=== PATIENT | female | born 1960 | race African-American/Black ===

== ENCOUNTER 2017-02-05 16:48 | Inpatient (IN) ==
[2017-02-05] MEDS ORDERED: HYDROmorphone 2 MG/1 ML VIAL ONE (17:31)
[2017-02-05] MEDS ORDERED: ONDANSETRON 4 MG/2 ML VIAL ONE (17:31)
[2017-02-05] MEDS ORDERED: HYDROmorphone 2 MG/1 ML VIAL IV STA (17:36)
[2017-02-05] MEDS ORDERED: ONDANSETRON 4 MG/2 ML VIAL IV STA (17:36)
[2017-02-05] MEDS ORDERED: LEVOFLOXACIN INJ 750 MG in PREMIX 1 EACH IV STA (17:49)
[2017-02-05] MEDS ORDERED: PIPERACILLIN/TAZOBACTAM 3,375 MG in SODIUM CHLORIDE 0.9% 100 ML IV STA (17:49)
[2017-02-05] MEDS ORDERED: LEVOFLOXACIN INJ 150 ML IV ONE (18:09)
[2017-02-05] MEDS ORDERED: SODIUM CHLORIDE 0.9% 100 ML IV ONE (19:02)
[2017-02-05] MEDS ORDERED: PIPERACILLIN/TAZOBACTAM 3,375 MG VIAL IV ONE (19:02)
[2017-02-05 19:09] LABS: Basophils % 0.1 % (0.0-0.8); Hematocrit 46.1 VOL% (35.7-47.0); Hemoglobin 15.7 GM/DL (12.0-16.0); Immature Granulocytes % 0.4 %; Immature Granulocytes Absolute 0.06 #; Lymphocytes # 0.8 10*3/uL (1.4-4.0); Lymphocytes % 4.9 % (21.3-54.2); Mean Corpuscular HGB Conc 34.1 GM/DL (32-36); Mean Corpuscular Hemoglobin 31 PG (27-34); Mean Corpuscular Volume 89.5 FL (87-102); Mean Platelet Volume 11.3 FL (9.6-12.0); Monocytes # 0.4 10*3/uL (0.11-0.8); Monocytes % 2.2 % (1.7-12.7); Neutrophils # 15.4 10*3/uL (1.4-7.4); Neutrophils % 92.4 % (38.7-73.9); Platelet Count 349 T/CUMM (130-400); Red Blood Count 5.15 MC/CUMM (3.8-5.5); Red Cell Distribution Width 12.1 % (9.3-17.3); White Blood Count 16.6 T/CUMM (4-12)
[2017-02-05 19:43] LABS: Lactic Acid 1.7 MMOL/L (0.4-2.0)
[2017-02-05 19:45] LABS: Alanine Aminotransferase 30 U/L (13-56); Albumin 4.5 G/DL (3.4-5.0); Alkaline Phosphatase 118 U/L (45-117); Amylase 31 U/L (25-115); Aspartate Amino Transferase 26 U/L (0-37); Bilirubin,Total < 0.39 MG/DL (0.2-1.0); Blood Urea Nitrogen 14 MG/DL (7-18); Calcium 10.8 MG/DL (8.5-10.1); Glucose 151 MG/DL (74-106); Magnesium 2.3 MG/DL (1.8-2.4); Osmolality,Calculated 267.5 MOS/KG (273-304); Potassium 5.2 MMOL/L (3.5-5.1); Sodium 132 MMOL/L (136-145); Total Protein 10.4 G/DL (6.4-8.3); Troponin I Only < 0.015 NG/ML (0.00-0.045)
[2017-02-05] MEDS ORDERED: GLUCAGON 1 MG VIAL IM PRN (20:41)
[2017-02-05 20:52] LABS: Apearance,Urine Slightly Hazy (Clear); Bilirubin,Urine Negative (Negative); Blood, Urine Negative (Negative); Glucose,Urine (UA) Negative (Negative); Hyaline Casts,Urine 1 /LPF (0-3); Ketones,Urine Negative (Negative); Mucus,Urine Occasional /LPF (Occasional); Nitrite,Urine Negative (Negative); Protein,Urine Negative; RBC,Urine 7 /HPF (0-4); Squamous Epithelial Cell,Urine Occasional /HPF (0-10); Urine Color Yellow (Yellow); Urine Specific Gravity > 1.060 (1.001-1.035); Urine Urobilinogen < 2.0 EU/DL (0.2-1.0); WBC,Urine 4 /HPF (0-6)
[2017-02-05] MEDS: HYDROmorphone 2 MG/1 ML VIAL IV PRN (20:59)
[2017-02-05] MEDS: SODIUM CHLORIDE 0.9% 1,000 ML IV SCH (20:59)
[2017-02-05 21:56] LABS: Lymphocytes 4 % (20-55); Segmented Neutrophils 94 % (50-85); Total Cells Counted 100
[2017-02-05 21:57] LABS: Platelet Estimate Normal
[2017-02-06] MEDS: HYDROmorphone 2 MG/1 ML VIAL IV PRN (01:05)
[2017-02-06] MEDS: INSULIN REGULAR 100 UNIT/ML SUBCUT SCH ×4 (01:08→18:33)
[2017-02-06 09:56] LABS: Albumin 3.5 G/DL (3.4-5.0); Bilirubin,Total 0.7 MG/DL (0.2-1.0); Magnesium 2.4 MG/DL (1.8-2.4); Osmolality,Calculated 275.8 MOS/KG (273-304); Potassium 5.4 MMOL/L (3.5-5.1)
[2017-02-06 10:00] LABS: Basophils % 0.1 % (0.0-0.8); Hematocrit 40.3 VOL% (35.7-47.0); Hemoglobin 13.6 GM/DL (12.0-16.0); Immature Granulocytes % 0.9 %; Immature Granulocytes Absolute 0.14 #; Lymphocytes # 1.2 10*3/uL (1.4-4.0); Lymphocytes % 7.9 % (21.3-54.2); Mean Corpuscular HGB Conc 33.7 GM/DL (32-36); Mean Corpuscular Hemoglobin 30 PG (27-34); Mean Corpuscular Volume 89.4 FL (87-102); Mean Platelet Volume 10.7 FL (9.6-12.0); Monocytes # 0.9 10*3/uL (0.11-0.8); Monocytes % 5.8 % (1.7-12.7); Neutrophils # 12.7 10*3/uL (1.4-7.4); Neutrophils % 85.3 % (38.7-73.9); Platelet Count 389 T/CUMM (130-400); Red Blood Count 4.51 MC/CUMM (3.8-5.5); Red Cell Distribution Width 12.4 % (9.3-17.3); White Blood Count 14.9 T/CUMM (4-12)
[2017-02-06] MEDS: SODIUM CHLORIDE 0.9% 1,000 ML IV SCH ×2 (13:19→13:20)
[2017-02-06] MEDS: PIPERACILLIN/TAZOBACTAM 3,375 MG in SODIUM CHLORIDE 0.9% 100 ML IV SCH ×3 (13:22→20:32)
[2017-02-06] MEDS: carBAMazepine 200 MG TABLET PO SCH (15:46)
[2017-02-07] MEDS: ONDANSETRON 4 MG/2 ML VIAL IV PRN (00:31)
[2017-02-07] MEDS: HYDROmorphone 2 MG/1 ML VIAL IV PRN ×3 (00:31→23:40)
[2017-02-07] MEDS: INSULIN REGULAR 100 UNIT/ML SUBCUT SCH ×4 (00:34→23:27)
[2017-02-07] MEDS: SODIUM CHLORIDE 0.9% 1,000 ML IV SCH ×4 (02:35→23:28)
[2017-02-07] MEDS: PIPERACILLIN/TAZOBACTAM 3,375 MG in SODIUM CHLORIDE 0.9% 100 ML IV SCH ×2 (04:43→13:40)
[2017-02-07 07:57] LABS: Basophils % 0.1 % (0.0-0.8); Hematocrit 31.6 VOL% (35.7-47.0); Immature Granulocytes % 0.3 %; Immature Granulocytes Absolute 0.02 #; Lymphocytes % 27.9 % (21.3-54.2); Mean Corpuscular HGB Conc 32.9 GM/DL (32-36); Mean Corpuscular Hemoglobin 30 PG (27-34); Mean Corpuscular Volume 91.6 FL (87-102); Mean Platelet Volume 10.8 FL (9.6-12.0); Monocytes # 0.7 10*3/uL (0.11-0.8); Monocytes % 9.8 % (1.7-12.7); Neutrophils # 4.5 10*3/uL (1.4-7.4); Neutrophils % 61.9 % (38.7-73.9); Red Cell Distribution Width 12.4 % (9.3-17.3)
[2017-02-07 08:27] LABS: Hemoglobin 10.4 GM/DL (12.0-16.0); Red Blood Count 3.45 MC/CUMM (3.8-5.5); White Blood Count 7.3 T/CUMM (4-12)
[2017-02-07 08:28] LABS: Platelet Count 230 T/CUMM (130-400)
[2017-02-07 08:33] LABS: Calcium 8.8 MG/DL (8.5-10.1); Osmolality,Calculated 277.5 MOS/KG (273-304); Potassium 3.8 MMOL/L (3.5-5.1)
[2017-02-07] MEDS: carBAMazepine 200 MG TABLET PO SCH ×2 (09:13→21:00)
[2017-02-07] MEDS ORDERED: BISACODYL 5 MG TABLET PO ONE (11:00)
[2017-02-07] MEDS ORDERED: POLYETHYLENE GLYCOL POWDER 255 GM BOTTLE PO ONE (11:00)
[2017-02-07] MEDS ORDERED: MAGNESIUM CITRATE 300 ML BOTTLE PO ONE (23:00)
[2017-02-08] MEDS: PIPERACILLIN/TAZOBACTAM 3,375 MG in SODIUM CHLORIDE 0.9% 100 ML IV SCH ×2 (01:00→09:56)
[2017-02-08] MEDS: ONDANSETRON 4 MG/2 ML VIAL IV PRN ×3 (03:38→22:15)
[2017-02-08] MEDS: HYDROmorphone 2 MG/1 ML VIAL IV PRN ×4 (03:38→22:18)
[2017-02-08] MEDS ORDERED: MAGNESIUM CITRATE 300 ML BOTTLE PO ONE (06:18)
[2017-02-08] MEDS: INSULIN REGULAR 100 UNIT/ML SUBCUT SCH ×4 (06:31→18:05)
[2017-02-08 06:56] LABS: Basophils % 0.1 % (0.0-0.8); Hematocrit 32.3 VOL% (35.7-47.0); Hemoglobin 10.7 GM/DL (12.0-16.0); Immature Granulocytes % 0.3 %; Immature Granulocytes Absolute 0.02 #; Lymphocytes # 1.2 10*3/uL (1.4-4.0); Mean Corpuscular HGB Conc 33.1 GM/DL (32-36); Mean Corpuscular Hemoglobin 30 PG (27-34); Mean Corpuscular Volume 89.5 FL (87-102); Mean Platelet Volume 10.9 FL (9.6-12.0); Monocytes # 0.6 10*3/uL (0.11-0.8); Monocytes % 8.1 % (1.7-12.7); Neutrophils # 5.1 10*3/uL (1.4-7.4); Neutrophils % 73.5 % (38.7-73.9); Platelet Count 236 T/CUMM (130-400); Red Blood Count 3.61 MC/CUMM (3.8-5.5); Red Cell Distribution Width 12.1 % (9.3-17.3); White Blood Count 6.9 T/CUMM (4-12)
[2017-02-08 07:37] LABS: Calcium 8.7 MG/DL (8.5-10.1); Osmolality,Calculated 270.8 MOS/KG (273-304); Potassium 3.4 MMOL/L (3.5-5.1)
[2017-02-08] MEDS ORDERED: PROPOFOL 200 MG/20 ML VIAL IV ONE (09:26)
[2017-02-08] MEDS ORDERED: LIDOCAINE 100 MG/5 ML SYRINGE ONE (09:26)
[2017-02-08] MEDS: carBAMazepine 200 MG TABLET PO SCH ×2 (09:55→20:21)
[2017-02-08] MEDS: LISINOPRIL 10 MG TABLET PO SCH (09:56)
[2017-02-08] MEDS ORDERED: ALBUTEROL/IPRATROPIUM 3 ML NEB RESP TX STA (13:17)
[2017-02-08] MEDS: SODIUM CHLORIDE 0.9% 1,000 ML IV SCH ×2 (17:22→22:24)
[2017-02-08] MEDS ORDERED: POLYETHYLENE GLYCOL POWDER 255 GM BOTTLE PO ONE (18:00)
[2017-02-09] MEDS: INSULIN REGULAR 100 UNIT/ML SUBCUT SCH ×5 (00:32→23:41)
[2017-02-09] MEDS: HYDROmorphone 2 MG/1 ML VIAL IV PRN ×2 (02:12→20:43)
[2017-02-09] MEDS: ONDANSETRON 4 MG/2 ML VIAL IV PRN ×2 (02:13→06:14)
[2017-02-09] MEDS ORDERED: MAGNESIUM CITRATE 300 ML BOTTLE PO ONE (06:00)
[2017-02-09] MEDS: SODIUM CHLORIDE 0.9% 1,000 ML IV SCH ×2 (11:31→14:45)
[2017-02-09] MEDS: carBAMazepine 200 MG TABLET PO SCH (11:37)
[2017-02-09] MEDS: LISINOPRIL 10 MG TABLET PO SCH (11:37)
[2017-02-09] MEDS ORDERED: MIDAZOLAM 2 MG/2 ML VIAL ONE ×2 (12:38→13:39)
[2017-02-09] MEDS ORDERED: ONDANSETRON 4 MG/2 ML VIAL ONE ×2 (12:39→13:00)
[2017-02-09] MEDS ORDERED: PHENYLEPHRINE 1 MG/10 ML SYRINGE IV ONE (13:00)
[2017-02-09] MEDS ORDERED: SUCCINYLCHOLINE 200 MG/10 ML VIAL ONE (13:00)
[2017-02-09] MEDS ORDERED: PROPOFOL 200 MG/20 ML VIAL IV ONE (13:00)
[2017-02-09] MEDS ORDERED: ESMOLOL 100 MG/10 ML VIAL IV ONE (13:00)
[2017-02-09] MEDS ORDERED: LIDOCAINE 2% 5 ML VIAL ONE (13:00)
[2017-02-09] MEDS ORDERED: ROCURONIUM 100 MG/10 ML VIAL IV ONE (13:00)
[2017-02-09] MEDS ORDERED: fentaNYL 100 MCG/2 ML VIAL ONE (13:24)
[2017-02-09] MEDS ORDERED: PROPOFOL 1,000 MG/100 ML BOTTLE IV ONE (14:21)
[2017-02-09] MEDS ORDERED: PIPERACILLIN/TAZOBACTAM 3,375 MG in SODIUM CHLORIDE 0.9% 100 ML IV SCH (14:30)
[2017-02-09 14:38] LABS: ABG Base Excess 5.4 MMOL/L (-2.5-2.5); ABG HCO3 29.2 MMOL/L (20-26); ABG PCO2 44.1 MM HG (35-48); ABG PH 7.443 (7.35-7.45); ABG PO2 77.9 MM HG (80-95); ABG TCO2 26.9 MMOL/L (23-27); Allen Test Positive; Pt O2 Delivery Device Ventilator
[2017-02-09] MEDS ORDERED: MAGNESIUM SULF RIDER 2 GM in PREMIX 1 EACH IV PRN (14:38)
[2017-02-09] MEDS ORDERED: MAGNESIUM SULF RIDER 4 GM in PREMIX 1 EACH IV PRN (14:38)
[2017-02-09 14:44] LABS: Amorphous Crystals,Urine Occasional /HPF (Few); Apearance,Urine CLOUDY (Clear); Bacteria,Urine Occasional /HPF (Few); Bilirubin,Urine Negative (Negative); Blood, Urine Negative (Negative); Glucose,Urine (UA) Negative (Negative); Granular Casts,Urine 3 /LPF (0-1); Hyaline Casts,Urine 15 /LPF (0-3); Ketones,Urine Negative (Negative); Mucus,Urine Occasional /LPF (Occasional); Nitrite,Urine Negative (Negative); Protein,Urine 100 MG/DL; RBC,Urine 2 /HPF (0-4); Urine Color Amber (Yellow); Urine Specific Gravity 1.012 (1.001-1.035); Urine Urobilinogen < 2.0 EU/DL (0.2-1.0); WBC,Urine 2 /HPF (0-6)
[2017-02-09] MEDS: PROPOFOL 1,000 MG/100 ML BOTTLE IV SCH ×3 (14:45→22:09)
[2017-02-09 14:47] LABS: Basophils % 0.1 % (0.0-0.8); Hematocrit 32.3 VOL% (35.7-47.0); Hemoglobin 10.9 GM/DL (12.0-16.0); Immature Granulocytes % 0.3 %; Immature Granulocytes Absolute 0.02 #; Lymphocytes # 1.4 10*3/uL (1.4-4.0); Lymphocytes % 19.9 % (21.3-54.2); Mean Corpuscular HGB Conc 33.7 GM/DL (32-36); Mean Corpuscular Hemoglobin 31 PG (27-34); Mean Corpuscular Volume 91.8 FL (87-102); Mean Platelet Volume 10.2 FL (9.6-12.0); Monocytes # 0.6 10*3/uL (0.11-0.8); Monocytes % 7.7 % (1.7-12.7); Neutrophils # 5.2 10*3/uL (1.4-7.4); Platelet Count 259 T/CUMM (130-400); Red Blood Count 3.52 MC/CUMM (3.8-5.5); Red Cell Distribution Width 12.3 % (9.3-17.3); White Blood Count 7.2 T/CUMM (4-12)
[2017-02-09 15:13] LABS: Magnesium 2.4 MG/DL (1.8-2.4); Osmolality,Calculated 283.8 MOS/KG (273-304)
[2017-02-09] MEDS ORDERED: PHENYLEPHRINE DRIP 40 MG/250 ML PREMIX IV ONE (15:14)
[2017-02-09] MEDS: PHENYLEPHRINE DRIP 40 MG/250 ML PREMIX IV SCH (15:18)
[2017-02-09] MEDS ORDERED: CLINDAMYCIN INJ 300 MG in PREMIX 1 EACH IV SCH (16:00)
[2017-02-09] MEDS: PANTOPRAZOLE 40 MG VIAL IV SCH (16:02)
[2017-02-09] MEDS: metroNIDAZOLE INJ 500 MG in PREMIX 1 EACH IV SCH ×2 (16:03→23:04)
[2017-02-09] MEDS: methylPREDNISolone SOD SUC 40 MG/1 ML VIAL IV SCH (16:49)
[2017-02-09] MEDS: POTASSIUM CHLORIDE RIDER 20 MEQ in PREMIX 1 EACH IV PRN ×3 (17:27→22:58)
[2017-02-09] MEDS: PIPERACILLIN/TAZOBACTAM 3,375 MG in SODIUM CHLORIDE 0.9% 100 ML IV SCH (17:27)
[2017-02-09 17:37] LABS: INR 1.1; PT Patient Result 11.7 SECS; Partial Thromboplastin Time 27.1 SECS (0-40)
[2017-02-09] MEDS: POTASSIUM CHLORIDE RIDER 10 MEQ in PREMIX 1 EACH IV PRN (19:39)
[2017-02-10] MEDS: SODIUM CHLORIDE 0.9% 1,000 ML IV SCH ×3 (00:04→18:52)
[2017-02-10] MEDS: methylPREDNISolone SOD SUC 40 MG/1 ML VIAL IV SCH ×3 (00:18→17:00)
[2017-02-10] MEDS: PIPERACILLIN/TAZOBACTAM 3,375 MG in SODIUM CHLORIDE 0.9% 100 ML IV SCH ×3 (00:20→17:00)
[2017-02-10] MEDS: POTASSIUM CHLORIDE RIDER 10 MEQ in PREMIX 1 EACH IV PRN (01:06)
[2017-02-10] MEDS: PROPOFOL 1,000 MG/100 ML BOTTLE IV SCH ×2 (02:11→16:42)
[2017-02-10] MEDS: HYDROmorphone 2 MG/1 ML VIAL IV PRN ×3 (02:15→20:20)
[2017-02-10 03:13] LABS: ABG Base Excess 4.4 MMOL/L (-2.5-2.5); ABG HCO3 25.9 MMOL/L (20-26); ABG Oxygen Saturation 99.3 % (95-100); ABG PH 7.569 (7.35-7.45); ABG PO2 370.4 MM HG (80-95); ABG TCO2 26.8 MMOL/L (23-27); Allen Test Positive; Pt O2 Delivery Device Ventilator
[2017-02-10 03:29] LABS: Basophils % 0.2 % (0.0-0.8); Hematocrit 29.9 VOL% (35.7-47.0); Hemoglobin 10.3 GM/DL (12.0-16.0); Immature Granulocytes % 0.3 %; Immature Granulocytes Absolute 0.04 #; Lymphocytes # 1.5 10*3/uL (1.4-4.0); Lymphocytes % 12.3 % (21.3-54.2); Mean Corpuscular HGB Conc 34.4 GM/DL (32-36); Mean Corpuscular Hemoglobin 31 PG (27-34); Mean Corpuscular Volume 89.5 FL (87-102); Mean Platelet Volume 10.3 FL (9.6-12.0); Monocytes # 0.6 10*3/uL (0.11-0.8); Monocytes % 4.7 % (1.7-12.7); Neutrophils # 10.2 10*3/uL (1.4-7.4); Neutrophils % 82.5 % (38.7-73.9); Platelet Count 291 T/CUMM (130-400); Red Blood Count 3.34 MC/CUMM (3.8-5.5); Red Cell Distribution Width 12.4 % (9.3-17.3); White Blood Count 12.4 T/CUMM (4-12)
[2017-02-10 03:44] LABS: Calcium 8.5 MG/DL (8.5-10.1); Potassium 3.8 MMOL/L (3.5-5.1)
[2017-02-10] MEDS: INSULIN REGULAR 100 UNIT/ML SUBCUT SCH ×3 (05:20→18:59)
[2017-02-10] MEDS: PHENYLEPHRINE DRIP 40 MG/250 ML PREMIX IV SCH ×2 (06:13→16:24)
[2017-02-10] MEDS: metroNIDAZOLE INJ 500 MG in PREMIX 1 EACH IV SCH ×3 (06:20→23:20)
[2017-02-10 08:58] LABS: Troponin I Only 0.021 NG/ML (0.00-0.045)
[2017-02-10] MEDS: PANTOPRAZOLE 40 MG VIAL IV SCH (10:00)
[2017-02-10] MEDS: LISINOPRIL 10 MG TABLET PO SCH (10:20)
[2017-02-10] MEDS: levETIRAcetam INJ 500 MG in SODIUM CHLORIDE 0.9% 50 ML IV SCH (20:25)
[2017-02-11] MEDS: methylPREDNISolone SOD SUC 40 MG/1 ML VIAL IV SCH ×3 (00:27→15:48)
[2017-02-11] MEDS: INSULIN REGULAR 100 UNIT/ML SUBCUT SCH ×5 (00:28→23:49)
[2017-02-11] MEDS: PIPERACILLIN/TAZOBACTAM 3,375 MG in SODIUM CHLORIDE 0.9% 100 ML IV SCH ×3 (00:28→18:41)
[2017-02-11] MEDS: HYDROmorphone 2 MG/1 ML VIAL IV PRN ×3 (02:09→20:37)
[2017-02-11] MEDS: PROPOFOL 1,000 MG/100 ML BOTTLE IV SCH ×2 (02:44→04:34)
[2017-02-11 03:47] LABS: ABG Base Excess -2.9 MMOL/L (-2.5-2.5); ABG Oxygen Saturation 99.8 % (95-100); ABG PCO2 33.5 MM HG (35-48); ABG PH 7.409 (7.35-7.45); ABG TCO2 19.4 MMOL/L (23-27); Allen Test Positive; Pt O2 Delivery Device Ventilator
[2017-02-11] MEDS: SODIUM CHLORIDE 0.9% 1,000 ML IV SCH (04:25)
[2017-02-11 04:48] LABS: Basophils % 0.2 % (0.0-0.8); Hematocrit 26.8 VOL% (35.7-47.0); Hemoglobin 8.8 GM/DL (12.0-16.0); Immature Granulocytes % 0.5 %; Immature Granulocytes Absolute 0.03 #; Lymphocytes # 1.1 10*3/uL (1.4-4.0); Lymphocytes % 17.9 % (21.3-54.2); Mean Corpuscular HGB Conc 32.8 GM/DL (32-36); Mean Corpuscular Hemoglobin 30 PG (27-34); Mean Corpuscular Volume 92.1 FL (87-102); Mean Platelet Volume 10.3 FL (9.6-12.0); Monocytes # 0.3 10*3/uL (0.11-0.8); Monocytes % 5.5 % (1.7-12.7); Neutrophils # 4.4 10*3/uL (1.4-7.4); Neutrophils % 75.9 % (38.7-73.9); Platelet Count 206 T/CUMM (130-400); Red Blood Count 2.91 MC/CUMM (3.8-5.5); Red Cell Distribution Width 12.5 % (9.3-17.3); White Blood Count 5.9 T/CUMM (4-12)
[2017-02-11 04:59] LABS: INR 1.1; PT Patient Result 11.1 SECS; Partial Thromboplastin Time 28.2 SECS (0-40)
[2017-02-11 05:15] LABS: Osmolality,Calculated 291.3 MOS/KG (273-304); Potassium 3.6 MMOL/L (3.5-5.1)
[2017-02-11] MEDS: POTASSIUM CHLORIDE RIDER 20 MEQ in PREMIX 1 EACH IV PRN (06:33)
[2017-02-11] MEDS: metroNIDAZOLE INJ 500 MG in PREMIX 1 EACH IV SCH ×3 (06:35→23:12)
[2017-02-11] MEDS: levETIRAcetam INJ 500 MG in SODIUM CHLORIDE 0.9% 50 ML IV SCH ×2 (09:00→20:38)
[2017-02-11 09:26] LABS: ABG HCO3 21.2 MMOL/L (20-26); ABG Oxygen Saturation 96.4 % (95-100); ABG PCO2 39.3 MM HG (35-48); ABG TCO2 22.4 MMOL/L (23-27); Allen Test Positive; Pt O2 Delivery Device Ventilator
[2017-02-11] MEDS ORDERED: ALBUTEROL/IPRATROPIUM 3 ML NEB RESP TX PRN (09:36)
[2017-02-11] MEDS: PANTOPRAZOLE 40 MG VIAL IV SCH (09:45)
[2017-02-11] MEDS: SODIUM CHLOR 0.45% KCL 20 MEQ 20 MEQ/1,000 ML BAG IV SCH ×2 (09:47→18:42)
[2017-02-11] MEDS: ALBUTEROL/IPRATROPIUM 3 ML NEB RESP TX SCH ×3 (11:21→19:23)
[2017-02-11 11:24] LABS: ABG Base Excess -4.7 MMOL/L (-2.5-2.5); ABG HCO3 20.3 MMOL/L (20-26); ABG Oxygen Saturation 88.6 % (95-100); ABG PH 7.341 (7.35-7.45); ABG PO2 60.7 MM HG (80-95); ABG TCO2 18.8 MMOL/L (23-27); Allen Test Positive; Pt O2 Delivery Device Room Air
[2017-02-11] MEDS: LISINOPRIL 10 MG TABLET PO SCH (13:52)
[2017-02-12] MEDS: methylPREDNISolone SOD SUC 40 MG/1 ML VIAL IV SCH ×3 (00:30→21:58)
[2017-02-12] MEDS: PIPERACILLIN/TAZOBACTAM 3,375 MG in SODIUM CHLORIDE 0.9% 100 ML IV SCH ×3 (00:30→17:21)
[2017-02-12 02:42] LABS: ABG Base Excess -5.2 MMOL/L (-2.5-2.5); ABG Oxygen Saturation 93.9 % (95-100); ABG PCO2 35.3 MM HG (35-48); ABG PH 7.354 (7.35-7.45); ABG PO2 72.2 MM HG (80-95); ABG TCO2 18.2 MMOL/L (23-27); Allen Test Positive; Pt O2 Delivery Device Room Air
[2017-02-12] MEDS: HYDROmorphone 2 MG/1 ML VIAL IV PRN ×4 (03:00→22:07)
[2017-02-12] MEDS: SODIUM CHLOR 0.45% KCL 20 MEQ 20 MEQ/1,000 ML BAG IV SCH ×3 (03:16→13:19)
[2017-02-12 04:46] LABS: Basophils % 0.1 % (0.0-0.8); Hematocrit 28.6 VOL% (35.7-47.0); Hemoglobin 9.3 GM/DL (12.0-16.0); Immature Granulocytes % 0.4 %; Immature Granulocytes Absolute 0.03 #; Lymphocytes % 14.2 % (21.3-54.2); Mean Corpuscular HGB Conc 32.5 GM/DL (32-36); Mean Corpuscular Hemoglobin 30 PG (27-34); Mean Corpuscular Volume 93.5 FL (87-102); Mean Platelet Volume 10.2 FL (9.6-12.0); Monocytes # 0.3 10*3/uL (0.11-0.8); Monocytes % 4.3 % (1.7-12.7); Neutrophils # 5.8 10*3/uL (1.4-7.4); Platelet Count 232 T/CUMM (130-400); Red Blood Count 3.06 MC/CUMM (3.8-5.5); Red Cell Distribution Width 12.7 % (9.3-17.3); White Blood Count 7.1 T/CUMM (4-12)
[2017-02-12 04:52] LABS: Calcium 8.5 MG/DL (8.5-10.1); Magnesium 2.3 MG/DL (1.8-2.4); Osmolality,Calculated 287.6 MOS/KG (273-304); Potassium 4.4 MMOL/L (3.5-5.1)
[2017-02-12] MEDS: INSULIN REGULAR 100 UNIT/ML SUBCUT SCH ×3 (06:22→17:13)
[2017-02-12] MEDS: metroNIDAZOLE INJ 500 MG in PREMIX 1 EACH IV SCH (06:22)
[2017-02-12] MEDS: ALBUTEROL/IPRATROPIUM 3 ML NEB RESP TX SCH ×4 (07:53→19:41)
[2017-02-12] MEDS: PANTOPRAZOLE 40 MG VIAL IV SCH (09:05)
[2017-02-12] MEDS: levETIRAcetam INJ 500 MG in SODIUM CHLORIDE 0.9% 50 ML IV SCH ×2 (09:06→21:54)
[2017-02-12] MEDS: LISINOPRIL 10 MG TABLET PO SCH (10:26)
[2017-02-12] MEDS ORDERED: cefOXitin 2,000 MG in SYRINGE 1 EACH IV ONE (12:32)
[2017-02-12] MEDS: DEXTROSE 50% 25 GM/50 ML VIAL IV PRN ×2 (12:45→17:18)
[2017-02-13] MEDS: PIPERACILLIN/TAZOBACTAM 3,375 MG in SODIUM CHLORIDE 0.9% 100 ML IV SCH ×4 (00:44→23:55)
[2017-02-13] MEDS: SODIUM CHLOR 0.45% KCL 20 MEQ 20 MEQ/1,000 ML BAG IV SCH ×4 (00:54→14:15)
[2017-02-13] MEDS: INSULIN REGULAR 100 UNIT/ML SUBCUT SCH ×5 (00:54→23:55)
[2017-02-13] MEDS: HYDROmorphone 2 MG/1 ML VIAL IV PRN ×3 (01:57→21:51)
[2017-02-13 04:00] LABS: ABG Base Excess -3.9 MMOL/L (-2.5-2.5); ABG HCO3 20.7 MMOL/L (20-26); ABG Oxygen Saturation 93.2 % (95-100); ABG PCO2 35.8 MM HG (35-48); ABG PO2 67.4 MM HG (80-95); ABG TCO2 21.8 MMOL/L (23-27); Allen Test Positive; Pt O2 Delivery Device Room Air
[2017-02-13 05:42] LABS: Basophils % 0.1 % (0.0-0.8); Hemoglobin 10.2 GM/DL (12.0-16.0); Immature Granulocytes % 0.7 %; Immature Granulocytes Absolute 0.05 #; Lymphocytes # 1.3 10*3/uL (1.4-4.0); Lymphocytes % 18.9 % (21.3-54.2); Mean Corpuscular HGB Conc 32.9 GM/DL (32-36); Mean Corpuscular Hemoglobin 30 PG (27-34); Mean Platelet Volume 10.1 FL (9.6-12.0); Monocytes # 0.4 10*3/uL (0.11-0.8); Monocytes % 6.5 % (1.7-12.7); Neutrophils % 73.8 % (38.7-73.9); Platelet Count 266 T/CUMM (130-400); Red Blood Count 3.37 MC/CUMM (3.8-5.5); Red Cell Distribution Width 12.4 % (9.3-17.3); White Blood Count 6.7 T/CUMM (4-12)
[2017-02-13 06:33] LABS: Albumin 2.5 G/DL (3.4-5.0); Bilirubin,Total 0.8 MG/DL (0.2-1.0); Calcium 8.8 MG/DL (8.5-10.1); Osmolality,Calculated 278.3 MOS/KG (273-304); Potassium 4.5 MMOL/L (3.5-5.1); Total Protein 6.1 G/DL (6.4-8.3)
[2017-02-13] MEDS ORDERED: cefOXitin 2,000 MG in SYRINGE 1 EACH IV ONE ×2 (07:00→14:00)
[2017-02-13] MEDS: ALBUTEROL/IPRATROPIUM 3 ML NEB RESP TX SCH ×4 (07:02→20:43)
[2017-02-13] MEDS: LISINOPRIL 10 MG TABLET PO SCH (09:41)
[2017-02-13] MEDS: PANTOPRAZOLE 40 MG VIAL IV SCH (09:47)
[2017-02-13] MEDS: methylPREDNISolone SOD SUC 40 MG/1 ML VIAL IV SCH ×2 (09:50→20:46)
[2017-02-13] MEDS: levETIRAcetam INJ 500 MG in SODIUM CHLORIDE 0.9% 50 ML IV SCH ×2 (09:55→20:49)
[2017-02-13] MEDS ORDERED: BUPIVACAINE 0.5% /EPI 10 ML VIAL ONE (12:25)
[2017-02-13] MEDS ORDERED: BUPIVACAINE 0.25% 50 ML VIAL ONE (12:25)
[2017-02-13] MEDS ORDERED: TISSUE ADHESIVE 1 EACH APPLICATOR TOP ONE (12:26)
[2017-02-13] MEDS ORDERED: HYDROmorphone 2 MG/1 ML VIAL IM PRN (13:54)
[2017-02-13] MEDS ORDERED: SODIUM CHLORIDE 0.9% 50 ML IV ONE (13:57)
[2017-02-13] MEDS ORDERED: TRACE ELEMENTS (5) 1 ML, MULTIVITAMIN INJ 10 ML in AMINO ACIDS/DEXT/LYTES 5-15% 1,000 ML IV SCH (17:00)
[2017-02-13] MEDS ORDERED: DEXTROSE 10% 1,000 ML IV PRN (17:00)
[2017-02-13] MEDS ORDERED: PROPOFOL 1,000 MG/100 ML BOTTLE IV ONE (18:09)
[2017-02-13] MEDS ORDERED: ACETAMINOPHEN 325 MG TABLET PO PRN (18:30)
[2017-02-13] MEDS ORDERED: HYDROmorphone PCA 30 MG/30 ML SYRINGE IV SCH (18:30)
[2017-02-13] MEDS: PROPOFOL 1,000 MG/100 ML BOTTLE IV SCH (19:00)
[2017-02-13 19:10] LABS: ABG Base Excess -5.3 MMOL/L (-2.5-2.5); ABG HCO3 19.4 MMOL/L (20-26); ABG PH 7.362 (7.35-7.45); ABG PO2 246.4 MM HG (80-95); ABG TCO2 20.5 MMOL/L (23-27); Allen Test Positive; Pt O2 Delivery Device Ventilator
[2017-02-13 19:34] LABS: Apearance,Urine CLEAR (Clear); Bilirubin,Urine Negative (Negative); Blood, Urine Negative (Negative); Glucose,Urine (UA) Negative (Negative); Ketones,Urine 5 mg/dL (Negative); Mucus,Urine Occasional /LPF (Occasional); Nitrite,Urine Negative (Negative); Protein,Urine Negative; RBC,Urine <1 /HPF (0-4); Urine Color Straw (Yellow); Urine Specific Gravity 1.004 (1.001-1.035); Urine Urobilinogen < 2.0 EU/DL (0.2-1.0)
[2017-02-13 19:38] LABS: Hematocrit 33.4 VOL% (35.7-47.0); Hemoglobin 11.2 GM/DL (12.0-16.0)
[2017-02-13] MEDS: SODIUM CHLORIDE 0.9% 1,000 ML IV SCH (20:20)
[2017-02-13] MEDS: KETOROLAC 15 MG/1 ML VIAL IV SCH (20:45)
[2017-02-13] MEDS ORDERED: SEVOFLURANE 1 UNIT/15 MINUTE INH ONE ×2 (22:06→22:11)
[2017-02-13] MEDS ORDERED: fentaNYL 100 MCG/2 ML VIAL ONE (22:07)
[2017-02-13] MEDS ORDERED: MIDAZOLAM 2 MG/2 ML VIAL ONE (22:07)
[2017-02-13] MEDS ORDERED: ONDANSETRON 4 MG/2 ML VIAL ONE (22:08)
[2017-02-13] MEDS ORDERED: ACETAMINOPHEN 1,000 MG/100 ML VIAL IV ONE (22:08)
[2017-02-13] MEDS ORDERED: PHENYLEPHRINE 50 MG/5 ML VIAL ONE (22:08)
[2017-02-13] MEDS ORDERED: ROCURONIUM 100 MG/10 ML VIAL IV ONE (22:09)
[2017-02-13] MEDS ORDERED: SODIUM CHLORIDE 0.9% 250 ML IV ONE (22:09)
[2017-02-13] MEDS ORDERED: SUCCINYLCHOLINE 200 MG/10 ML VIAL ONE (22:09)
[2017-02-13] MEDS ORDERED: LACTATED RINGERS 1,000 ML IV ONE (22:09)
[2017-02-13] MEDS ORDERED: PROPOFOL 200 MG/20 ML VIAL IV ONE (22:10)
[2017-02-13] MEDS ORDERED: ALBUMIN 5% 12.5 GM/250 ML VIAL IV ONE ×2 (22:10)
[2017-02-13] MEDS: cefOXitin 2,000 MG in SYRINGE 1 EACH IV SCH (23:43)
[2017-02-14 00:50] LABS: Basophils % 0.1 % (0.0-0.8); Hematocrit 27.3 VOL% (35.7-47.0); Hemoglobin 9.2 GM/DL (12.0-16.0); Immature Granulocytes % 0.5 %; Immature Granulocytes Absolute 0.05 #; Lymphocytes % 9.9 % (21.3-54.2); Mean Corpuscular HGB Conc 33.7 GM/DL (32-36); Mean Corpuscular Hemoglobin 31 PG (27-34); Mean Corpuscular Volume 91.6 FL (87-102); Mean Platelet Volume 10.1 FL (9.6-12.0); Monocytes # 0.7 10*3/uL (0.11-0.8); Neutrophils # 8.5 10*3/uL (1.4-7.4); Neutrophils % 82.5 % (38.7-73.9); Platelet Count 230 T/CUMM (130-400); Red Blood Count 2.98 MC/CUMM (3.8-5.5); Red Cell Distribution Width 12.7 % (9.3-17.3); White Blood Count 10.3 T/CUMM (4-12)
[2017-02-14] MEDS: KETOROLAC 15 MG/1 ML VIAL IV SCH ×4 (01:22→20:42)
[2017-02-14 01:42] LABS: Albumin 2.7 G/DL (3.4-5.0); Bilirubin,Total 0.8 MG/DL (0.2-1.0); Calcium 8.3 MG/DL (8.5-10.1); Calcium 8.5 MG/DL (8.5-10.1); Magnesium 1.7 MG/DL (1.8-2.4); Osmolality,Calculated 286.8 MOS/KG (273-304); Phosphorous 4.1 MG/DL (2.5-4.9); Potassium 4.3 MMOL/L (3.5-5.1); Prealbumin 22.6 MG/DL (20-40); Total Protein 5.2 G/DL (6.4-8.3)
[2017-02-14] MEDS: HYDROmorphone 2 MG/1 ML VIAL IV PRN (02:55)
[2017-02-14 04:05] LABS: ABG Base Excess -1.1 MMOL/L (-2.5-2.5); ABG HCO3 23.5 MMOL/L (20-26); ABG Oxygen Saturation 99.9 % (95-100); ABG PCO2 36.2 MM HG (35-48); ABG PH 7.413 (7.35-7.45); ABG TCO2 21.1 MMOL/L (23-27); Allen Test Positive; Pt O2 Delivery Device Ventilator
[2017-02-14] MEDS: SODIUM CHLORIDE 0.9% 1,000 ML IV SCH ×4 (05:14→23:40)
[2017-02-14] MEDS: cefOXitin 2,000 MG in SYRINGE 1 EACH IV SCH ×4 (05:17→23:55)
[2017-02-14] MEDS: INSULIN REGULAR 100 UNIT/ML SUBCUT SCH ×3 (05:44→19:04)
[2017-02-14] MEDS: ALBUTEROL/IPRATROPIUM 3 ML NEB RESP TX SCH ×4 (07:45→20:21)
[2017-02-14] MEDS: methylPREDNISolone SOD SUC 40 MG/1 ML VIAL IV SCH ×2 (07:58→14:37)
[2017-02-14] MEDS: levETIRAcetam INJ 500 MG in SODIUM CHLORIDE 0.9% 50 ML IV SCH ×2 (07:59→20:51)
[2017-02-14] MEDS: PIPERACILLIN/TAZOBACTAM 3,375 MG in SODIUM CHLORIDE 0.9% 100 ML IV SCH ×2 (08:01→15:17)
[2017-02-14] MEDS: LISINOPRIL 10 MG TABLET PO SCH (08:01)
[2017-02-14] MEDS: PANTOPRAZOLE 40 MG VIAL IV SCH (08:01)
[2017-02-14 11:56] LABS: ABG Base Excess -0.8 MMOL/L (-2.5-2.5); ABG HCO3 23.5 MMOL/L (20-26); ABG Oxygen Saturation 95.9 % (95-100); ABG PCO2 37.6 MM HG (35-48); ABG PH 7.414 (7.35-7.45); ABG PO2 85.4 MM HG (80-95); ABG TCO2 24.7 MMOL/L (23-27); Allen Test Positive
[2017-02-14] MEDS: ENOXAPARIN 40 MG/0.4 ML SYRINGE SUBCUT SCH (14:38)
[2017-02-14] MEDS: TRACE ELEMENTS (5) 1 ML, MULTIVITAMIN INJ 10 ML in AMINO ACIDS/DEXT/LYTES 5-15% 2,000 ML IV SCH (16:06)
[2017-02-14 17:10] LABS: ABG HCO3 24.3 MMOL/L (20-26); ABG Oxygen Saturation 98.4 % (95-100); ABG PCO2 38.2 MM HG (35-48); ABG PH 7.422 (7.35-7.45); ABG PO2 144.7 MM HG (80-95); ABG TCO2 25.5 MMOL/L (23-27); Allen Test Positive
[2017-02-14] MEDS: PROPOFOL 1,000 MG/100 ML BOTTLE IV SCH (19:04)
[2017-02-15] MEDS: INSULIN REGULAR 100 UNIT/ML SUBCUT SCH ×4 (00:52→18:34)
[2017-02-15] MEDS: KETOROLAC 15 MG/1 ML VIAL IV SCH ×4 (01:10→21:12)
[2017-02-15] MEDS: methylPREDNISolone SOD SUC 40 MG/1 ML VIAL IV SCH (01:11)
[2017-02-15] MEDS: HYDROmorphone 2 MG/1 ML VIAL IV PRN ×3 (01:20→17:59)
[2017-02-15] MEDS: PIPERACILLIN/TAZOBACTAM 3,375 MG in SODIUM CHLORIDE 0.9% 100 ML IV SCH ×3 (01:22→18:00)
[2017-02-15 03:00] LABS: ABG Base Excess -0.6 MMOL/L (-2.5-2.5); ABG HCO3 24.8 MMOL/L (20-26); ABG PCO2 43.6 MM HG (35-48); ABG PH 7.372 (7.35-7.45); ABG PO2 100.6 MM HG (80-95); ABG TCO2 26.1 MMOL/L (23-27); Allen Test Positive
[2017-02-15] MEDS: cefOXitin 2,000 MG in SYRINGE 1 EACH IV SCH (05:13)
[2017-02-15 05:19] LABS: Basophils % 0.1 % (0.0-0.8); Hematocrit 25.2 VOL% (35.7-47.0); Hemoglobin 7.9 GM/DL (12.0-16.0); Immature Granulocytes % 0.5 %; Immature Granulocytes Absolute 0.04 #; Lymphocytes # 0.9 10*3/uL (1.4-4.0); Lymphocytes % 11.4 % (21.3-54.2); Mean Corpuscular HGB Conc 31.3 GM/DL (32-36); Mean Corpuscular Hemoglobin 31 PG (27-34); Mean Corpuscular Volume 99.2 FL (87-102); Mean Platelet Volume 10.4 FL (9.6-12.0); Monocytes # 0.5 10*3/uL (0.11-0.8); Neutrophils # 6.1 10*3/uL (1.4-7.4); Platelet Count 186 T/CUMM (130-400); Red Blood Count 2.54 MC/CUMM (3.8-5.5); Red Cell Distribution Width 13.4 % (9.3-17.3); White Blood Count 7.5 T/CUMM (4-12)
[2017-02-15 06:42] LABS: Calcium 7.7 MG/DL (8.5-10.1); Osmolality,Calculated 294.4 MOS/KG (273-304); Potassium 3.6 MMOL/L (3.5-5.1)
[2017-02-15] MEDS: SODIUM CHLORIDE 0.9% 1,000 ML IV SCH ×2 (07:33→21:12)
[2017-02-15] MEDS: ALBUTEROL/IPRATROPIUM 3 ML NEB RESP TX SCH ×4 (08:02→19:41)
[2017-02-15] MEDS: PANTOPRAZOLE 40 MG VIAL IV SCH (08:58)
[2017-02-15] MEDS: LISINOPRIL 10 MG TABLET PO SCH (08:58)
[2017-02-15] MEDS: levETIRAcetam INJ 500 MG in SODIUM CHLORIDE 0.9% 50 ML IV SCH ×2 (08:58→21:16)
[2017-02-15] MEDS ORDERED: SODIUM CHLORIDE 0.9% 1,000 ML IV PRN (09:45)
[2017-02-15] MEDS: ENOXAPARIN 40 MG/0.4 ML SYRINGE SUBCUT SCH (13:31)
[2017-02-15] MEDS: TRACE ELEMENTS (5) 1 ML, MULTIVITAMIN INJ 10 ML in AMINO ACIDS/DEXT/LYTES 5-15% 2,000 ML IV SCH (16:06)
[2017-02-16] MEDS: INSULIN REGULAR 100 UNIT/ML SUBCUT SCH ×4 (00:40→18:03)
[2017-02-16] MEDS: HYDROmorphone 2 MG/1 ML VIAL IV PRN ×3 (00:47→22:45)
[2017-02-16] MEDS: PIPERACILLIN/TAZOBACTAM 3,375 MG in SODIUM CHLORIDE 0.9% 100 ML IV SCH ×3 (00:52→18:07)
[2017-02-16] MEDS: KETOROLAC 15 MG/1 ML VIAL IV SCH ×3 (02:34→18:14)
[2017-02-16] MEDS: methylPREDNISolone SOD SUC 40 MG/1 ML VIAL IV SCH ×3 (02:39→13:27)
[2017-02-16 04:01] LABS: ABG Base Excess 0.7 MMOL/L (-2.5-2.5); ABG HCO3 25.4 MMOL/L (20-26); ABG Oxygen Saturation 97.4 % (95-100); ABG PO2 106.4 MM HG (80-95); ABG TCO2 26.7 MMOL/L (23-27); Allen Test Positive
[2017-02-16] MEDS: ALBUTEROL/IPRATROPIUM 3 ML NEB RESP TX SCH ×4 (07:23→20:09)
[2017-02-16 07:49] LABS: Hematocrit 32.1 VOL% (35.7-47.0); Immature Granulocytes % 0.5 %; Immature Granulocytes Absolute 0.03 #; Lymphocytes # 0.8 10*3/uL (1.4-4.0); Lymphocytes % 11.9 % (21.3-54.2); Mean Corpuscular Hemoglobin 30 PG (27-34); Mean Corpuscular Volume 89.4 FL (87-102); Mean Platelet Volume 10.4 FL (9.6-12.0); Monocytes # 0.3 10*3/uL (0.11-0.8); Monocytes % 4.5 % (1.7-12.7); Neutrophils # 5.4 10*3/uL (1.4-7.4); Neutrophils % 83.1 % (38.7-73.9); Red Cell Distribution Width 15.6 % (9.3-17.3); White Blood Count 6.5 T/CUMM (4-12)
[2017-02-16 07:58] LABS: Red Blood Count 3.59 MC/CUMM (3.8-5.5)
[2017-02-16 07:59] LABS: Hemoglobin 10.6 GM/DL (12.0-16.0); Platelet Count 233 T/CUMM (130-400)
[2017-02-16 08:21] LABS: Albumin 2.3 G/DL (3.4-5.0); Bilirubin,Total 0.6 MG/DL (0.2-1.0); Calcium 8.4 MG/DL (8.5-10.1); Osmolality,Calculated 288.8 MOS/KG (273-304); Potassium 4.5 MMOL/L (3.5-5.1); Total Protein 5.5 G/DL (6.4-8.3)
[2017-02-16] MEDS: PANTOPRAZOLE 40 MG VIAL IV SCH (09:14)
[2017-02-16] MEDS: levETIRAcetam INJ 500 MG in SODIUM CHLORIDE 0.9% 50 ML IV SCH ×2 (09:47→20:49)
[2017-02-16] MEDS: SODIUM CHLORIDE 0.9% 1,000 ML IV SCH ×2 (10:30→22:49)
[2017-02-16] MEDS ORDERED: METOCLOPRAMIDE 10 MG/2 ML VIAL IM SCH (12:00)
[2017-02-16] MEDS ORDERED: METOCLOPRAMIDE 10 MG/2 ML VIAL IV SCH (12:55)
[2017-02-16] MEDS: METOCLOPRAMIDE 10 MG/2 ML VIAL IV SCH ×2 (13:22→18:09)
[2017-02-16] MEDS: ENOXAPARIN 40 MG/0.4 ML SYRINGE SUBCUT SCH (13:25)
[2017-02-16] MEDS: LISINOPRIL 10 MG TABLET PO SCH (18:12)
[2017-02-16] MEDS: TRACE ELEMENTS (5) 1 ML, MULTIVITAMIN INJ 10 ML in AMINO ACIDS/DEXT/LYTES 5-15% 2,000 ML IV SCH (18:17)
[2017-02-17] MEDS: methylPREDNISolone SOD SUC 40 MG/1 ML VIAL IV SCH ×2 (00:59→14:28)
[2017-02-17] MEDS: SODIUM CHLORIDE 0.9% 1,000 ML IV SCH ×2 (01:04→13:10)
[2017-02-17] MEDS: METOCLOPRAMIDE 10 MG/2 ML VIAL IV SCH ×3 (01:04→12:46)
[2017-02-17] MEDS: INSULIN REGULAR 100 UNIT/ML SUBCUT SCH ×4 (01:04→19:20)
[2017-02-17] MEDS: PIPERACILLIN/TAZOBACTAM 3,375 MG in SODIUM CHLORIDE 0.9% 100 ML IV SCH ×3 (01:08→17:45)
[2017-02-17] MEDS: HYDROmorphone 2 MG/1 ML VIAL IV PRN ×5 (03:31→23:03)
[2017-02-17 04:31] LABS: ABG Base Excess 2.1 MMOL/L (-2.5-2.5); ABG HCO3 26.3 MMOL/L (20-26); ABG Oxygen Saturation 98.5 % (95-100); ABG PCO2 41.8 MM HG (35-48); ABG PH 7.416 (7.35-7.45); ABG TCO2 24.2 MMOL/L (23-27)
[2017-02-17 05:53] LABS: Basophils % 0.2 % (0.0-0.8); Hematocrit 31.7 VOL% (35.7-47.0); Hemoglobin 10.5 GM/DL (12.0-16.0); Immature Granulocytes % 0.6 %; Immature Granulocytes Absolute 0.04 #; Lymphocytes % 16.3 % (21.3-54.2); Mean Corpuscular HGB Conc 33.1 GM/DL (32-36); Mean Corpuscular Hemoglobin 30 PG (27-34); Mean Corpuscular Volume 90.3 FL (87-102); Mean Platelet Volume 10.7 FL (9.6-12.0); Monocytes # 0.4 10*3/uL (0.11-0.8); Monocytes % 6.7 % (1.7-12.7); Neutrophils # 4.8 10*3/uL (1.4-7.4); Neutrophils % 76.2 % (38.7-73.9); Platelet Count 253 T/CUMM (130-400); Red Blood Count 3.51 MC/CUMM (3.8-5.5); Red Cell Distribution Width 15.9 % (9.3-17.3); White Blood Count 6.3 T/CUMM (4-12)
[2017-02-17 06:32] LABS: Albumin 2.3 G/DL (3.4-5.0); Bilirubin,Total 0.7 MG/DL (0.2-1.0); Calcium 8.7 MG/DL (8.5-10.1); Osmolality,Calculated 289.6 MOS/KG (273-304); Potassium 4.3 MMOL/L (3.5-5.1); Total Protein 5.6 G/DL (6.4-8.3)
[2017-02-17] MEDS: ALBUTEROL/IPRATROPIUM 3 ML NEB RESP TX SCH ×4 (08:15→20:07)
[2017-02-17] MEDS: PANTOPRAZOLE 40 MG VIAL IV SCH (09:38)
[2017-02-17] MEDS: LISINOPRIL 10 MG TABLET PO SCH (09:40)
[2017-02-17] MEDS: levETIRAcetam INJ 500 MG in SODIUM CHLORIDE 0.9% 50 ML IV SCH ×2 (09:43→20:08)
[2017-02-17] MEDS: ENOXAPARIN 40 MG/0.4 ML SYRINGE SUBCUT SCH (14:29)
[2017-02-17] MEDS: TRACE ELEMENTS (5) 1 ML, MULTIVITAMIN INJ 10 ML in AMINO ACIDS/DEXT/LYTES 5-15% 2,000 ML IV SCH (16:57)
[2017-02-17] MEDS: ALUMINUM/MAGNES/SIMETH MAX STR 30 ML UDCUP PO SCH ×2 (17:44→20:08)
[2017-02-18] MEDS: INSULIN REGULAR 100 UNIT/ML SUBCUT SCH ×4 (00:42→20:04)
[2017-02-18] MEDS: methylPREDNISolone SOD SUC 40 MG/1 ML VIAL IV SCH ×2 (00:43→14:01)
[2017-02-18] MEDS: PIPERACILLIN/TAZOBACTAM 3,375 MG in SODIUM CHLORIDE 0.9% 100 ML IV SCH ×3 (00:43→16:35)
[2017-02-18] MEDS: HYDROmorphone 2 MG/1 ML VIAL IV PRN ×4 (02:27→21:49)
[2017-02-18 02:48] LABS: Basophils % 0.2 % (0.0-0.8); Hematocrit 33.8 VOL% (35.7-47.0); Immature Granulocytes % 0.6 %; Immature Granulocytes Absolute 0.05 #; Lymphocytes # 2.4 10*3/uL (1.4-4.0); Lymphocytes % 27.3 % (21.3-54.2); Mean Corpuscular HGB Conc 32.5 GM/DL (32-36); Mean Corpuscular Hemoglobin 30 PG (27-34); Mean Corpuscular Volume 90.9 FL (87-102); Mean Platelet Volume 10.7 FL (9.6-12.0); Monocytes # 0.8 10*3/uL (0.11-0.8); Monocytes % 9.6 % (1.7-12.7); Neutrophils # 5.4 10*3/uL (1.4-7.4); Neutrophils % 62.3 % (38.7-73.9); Platelet Count 303 T/CUMM (130-400); Red Blood Count 3.72 MC/CUMM (3.8-5.5); Red Cell Distribution Width 15.7 % (9.3-17.3); White Blood Count 8.6 T/CUMM (4-12)
[2017-02-18 03:21] LABS: Albumin 2.5 G/DL (3.4-5.0); Bilirubin,Total 0.6 MG/DL (0.2-1.0); Calcium 8.7 MG/DL (8.5-10.1); Osmolality,Calculated 283.1 MOS/KG (273-304); Total Protein 5.7 G/DL (6.4-8.3)
[2017-02-18] MEDS: SODIUM CHLORIDE 0.9% 1,000 ML IV SCH ×2 (05:05→05:56)
[2017-02-18] MEDS: LISINOPRIL 10 MG TABLET PO SCH (08:47)
[2017-02-18] MEDS: ALBUTEROL/IPRATROPIUM 3 ML NEB RESP TX SCH ×4 (08:50→19:18)
[2017-02-18] MEDS: ALUMINUM/MAGNES/SIMETH MAX STR 30 ML UDCUP PO SCH ×4 (08:51→21:04)
[2017-02-18] MEDS: levETIRAcetam INJ 500 MG in SODIUM CHLORIDE 0.9% 50 ML IV SCH ×2 (08:57→21:04)
[2017-02-18] MEDS: PANTOPRAZOLE 40 MG VIAL IV SCH (09:05)
[2017-02-18] MEDS: ENOXAPARIN 40 MG/0.4 ML SYRINGE SUBCUT SCH (13:25)
[2017-02-18] MEDS: TRACE ELEMENTS (5) 1 ML, MULTIVITAMIN INJ 10 ML in AMINO ACIDS/DEXT/LYTES 5-15% 2,000 ML IV SCH (15:33)
[2017-02-19] MEDS: INSULIN REGULAR 100 UNIT/ML SUBCUT SCH ×3 (00:36→12:44)
[2017-02-19] MEDS: HYDROmorphone 2 MG/1 ML VIAL IV PRN ×3 (00:36→12:05)
[2017-02-19] MEDS: PIPERACILLIN/TAZOBACTAM 3,375 MG in SODIUM CHLORIDE 0.9% 100 ML IV SCH ×3 (00:40→18:17)
[2017-02-19] MEDS: methylPREDNISolone SOD SUC 40 MG/1 ML VIAL IV SCH ×2 (00:43→13:21)
[2017-02-19] MEDS: ALBUTEROL/IPRATROPIUM 3 ML NEB RESP TX SCH ×3 (07:41→14:51)
[2017-02-19] MEDS: ALUMINUM/MAGNES/SIMETH MAX STR 30 ML UDCUP PO SCH ×3 (09:35→18:18)
[2017-02-19] MEDS: levETIRAcetam INJ 500 MG in SODIUM CHLORIDE 0.9% 50 ML IV SCH (09:38)
[2017-02-19] MEDS: PANTOPRAZOLE 40 MG VIAL IV SCH (09:41)
[2017-02-19] MEDS: LISINOPRIL 10 MG TABLET PO SCH (09:48)
[2017-02-19] MEDS: TRACE ELEMENTS (5) 1 ML, MULTIVITAMIN INJ 10 ML in AMINO ACIDS/DEXT/LYTES 5-15% 2,000 ML IV SCH (09:48)
[2017-02-19 11:43] VITALS: BP 118/73
[2017-02-19] MEDS: ENOXAPARIN 40 MG/0.4 ML SYRINGE SUBCUT SCH (12:10)
== END 2017-02-19 17:00 | disposition home health service (06) | DRG 329 ==
LOC: EDUNIT# → EDBD → N.ED 16:48 → N.EDINP 19:15 → SUATTDRO 19:15 → N.2E 19:56 → N.ICU 02-09 13:49 → N.3E 02-12 11:03 → N.ICU 02-13 19:51 → N.3E 02-15 11:45
PROVIDERS: ADMIT Internal Medicine; ATTEND Internal Medicine
PROC: COLONBX (2017-02-09 12:05)